=== PATIENT | female | born 1940 | race Hispanic/Latino ===

== ENCOUNTER → 2021-11-18 | Outpatient (RCR) | payer MEDICARE ==
[~2021-11-18] MED LIST: ACETAMINOPHEN325 M1 PO; METFORMIN HCL500 M3; METFORMIN HCL500 MG PO; METOPROLOL TART25 MG PO; METOPROLOL-HCT1 EAC1 PO; TRAZODONE HCL100 MG PO; ULTRAM 50MG50 MG PO; Z.0.GEMFIBROZIL600 M PO; Z.0.LISINOPRIL20 MG PO; Z.1.HYDROCHLOROTH12. PO
== END ==
LOC: EDSTATUS 11-12 10:51 → PT 10:45
PROVIDERS: ATTEND Specialist
DX: S39.012D Strain of muscle, fascia and tendon of lower back, subsequent encounter (principal); M70.62 Trochanteric bursitis, left hip; M62.81 Muscle weakness (generalized)

== ENCOUNTER → 2021-12-18 | Outpatient (RCR) | payer MEDICARE | LOC: PT 11-20 10:42 | PROVIDERS: ATTEND Specialist | DX: S39.012A Strain of muscle, fascia and tendon of lower back, initial encounter (principal) | CPT/HCPCS: 97139 ==

== ENCOUNTER 2022-01-15 10:00 | Outpatient (RCR) | payer MEDICARE | END 2022-01-18 | LOC: PT 10:00 | PROVIDERS: ATTEND Specialist | DX: S39.012A Strain of muscle, fascia and tendon of lower back, initial encounter (principal) ==